=== PATIENT | male | born 1960 | race Asian ===

== ENCOUNTER 2017-04-06 14:07 | Outpatient (CLI) | payer OTHER ==
--- NOTE | 2017-04-06 17:08 | MRI Report ---
EXAM: MRI LUMBAR SPINE WITHOUT CONTRAST EXAM DATE: 04/06/2017 02:52 PM. CLINICAL HISTORY: Chronic low back pain. Left lower extremity radiculopathy. COMPARISON: None. TECHNIQUE: Multiplanar, multisequence T1-weighted and fluid-sensitive sequences of the lumbar spine f rom T12 to S1 without contrast. Other: None. FINDINGS: Spinal Cord: The conus terminates at mid-L1. The conus medullaris and cauda equina are unremarkable. Alignment: No scoliosis or spondylolisthesis. Bone Marrow: Five rct-oas-dcjxhmp lumbar vertebral bodies are assumed. There are Schmorl's nodes at t he T11, T12, L1, L2, L3 inferior endplates and at the L2 superior endplate. No gross fractures or bon e lesions. Disk Levels/Facets: L5-S1: Tiny posterior central to right paracentral disk protrusion. Severe left and yoab-kn-lwqkfxbu right facet arthropathy. Small left facet joint effusion. No stenoses. L4-L5: Small disk bulge, which is asymmetric towards the right. Moderate ligamentum flavum thickening . Emzj-oy-kgjbknuf facet arthropathy. Mild canal, right subarticular zone, and right foraminal stenos es. L3-L4: Minimal disk bulge. Moderate ligamentum flavum thickening. Minimal canal and right foraminal n arrowing. L2-L3: Minimal posterior disk bulge. Small anterior osteophytes. Minimal canal and foraminal narrowin g. L1-L2: Unremarkable. T12-L1: Unremarkable. Musculature: Normal. No edema or fatty atrophy. Other: There is a 1.3 x 1.2 cm left renal cyst. IMPRESSION: 1. Multilevel degenerative disk changes, facet arthropathy, and ligamentum flavum thickening. 2. Small asymmetric disk bulge towards the right at L4-L5. Mild canal, right subarticular zone, and r ight foraminal stenoses. Comment: The following findings are so common in adults without low back pain that while we report th eir presence, they must be interpreted with caution and in the context of the clinical situation. (Re madison Cancino et al, Spine 2001) Prevalence of findings in patients without low back pain: Disk degeneration (any evidence): 92% Disk desiccation/T2 signal loss: 83% Disk height loss: 56% Disk bulge: 64% Disk protrusion: 32% Annular tear/high intensity zone: 38% [facility] Referring Provider Line: [phone] SITE ID: [id number]
== END 2017-04-06 14:08 | disposition home or self-care (01) ==
LOC: DI 14:07
DX: M51.27 Other intervertebral disc displacement, lumbosacral region (principal); M51.36 Other intervertebral disc degeneration, lumbar region; M47.896 Other spondylosis, lumbar region
CPT/HCPCS: 72148

== ENCOUNTER 2018-05-07 11:24 | Outpatient (CLI) | payer OTHER | END 2018-05-07 11:25 | disposition home or self-care (01) | LOC: SC 11:24 | PROVIDERS: ATTEND Internal Medicine Pulmonary Disease | DX: G47.33 Obstructive sleep apnea (adult) (pediatric) (principal) | CPT/HCPCS: 99203; 99212 ==

== ENCOUNTER 2018-07-17 16:09 | Outpatient (CLI) | payer OTHER | END 2018-07-17 16:10 | disposition home or self-care (01) | LOC: SC 16:09 | PROVIDERS: ATTEND Nurse Practitioner Family | DX: G47.33 Obstructive sleep apnea (adult) (pediatric) (principal); G47.00 Insomnia, unspecified | CPT/HCPCS: 99212; 99214 ==

== ENCOUNTER 2018-08-26 09:23 | Emergency (ER) | payer OTHER ==
[2018-08-26 09:29] VITALS: BP 125/80
[2018-08-26] MEDS ORDERED: PROPARACAINE 0.5% OPHTH DROPS 15 ML LEFTEYE STA (09:58)
[2018-08-26] MEDS ORDERED: CYCLOBENZAPRINE 10 MG TABLET PO STA (09:58)
--- NOTE | 2018-08-26 10:19 | ED Physician Documentation ---
History of Present Illness - Stated complaint Stated Complaint: BACK PX/EYE PX - Chief complaint Chief Complaint: Heent - History obtained from History obtained from: Patient - History of Present Illness Timing: Yesterday Pain level max: 8 Pain level now: 8 - Additonal information Additional information: 58-year-old male presents to the emergency department with 2 issues, the first is left eye discomfort. Feels like there is a foreign object in his eye since last night. Thinks it may have been debris from gardening and working in the yard. He does not wear contacts. Better by closing his eyes, worse with opening his eyes. He also complains of left-sided sciatica pain. This is a chronic ongoing issue for him. Normally resolves with Flexeril and Valium. No loss of bowel or bladder control. No recent injury. No fevers. Worse with movement, better with rest Review of Systems Constitutional: denies: Fever, Chills Eyes: denies: Decreased vision Nose: denies: Rhinorrhea / runny nose, Congestion Cardiac: denies: Chest pain / pressure Respiratory: denies: Cough GI: denies: Abdominal Pain, Nausea, Vomiting, Diarrhea : reports: Incontinent. denies: Unable to Void Skin: denies: Rash Musculoskeletal: denies: Neck pain PD PAST MEDICAL HISTORY - Past Medical History Past Medical History: Yes Cardiovascular: High cholesterol Musculoskeletal: Chronic back pain - Present Medications Home Medications: Ambulatory Orders Medication Instructions Recorded Confirmed Allopurinol 100 mg PO 08/26/18 Aspirin 08/26/18 Atorvastatin [Lipitor] 0 mg 08/26/18 Cetirizine [ZyrTEC] 10 mg PO ONCE 08/26/18 08/26/18 Cyclobenzaprine [Flexeril] 10 mg PO TID PRN #20 tablet 08/26/18 Polymyxin B/Trimeth Ophth Drop 1 drops LEFTEYE Q3H 7 Days #1 08/26/18 [Polytrim Ophth Drops] bottle diazePAM [Valium] 5 - 10 mg PO TID PRN #15 tablet 08/26/18 metFORMIN [Glucophage] 500 mg PO ONCE 08/26/18 08/26/18 - Allergies Allergies/Adverse Reactions: Allergies Allergy/AdvReac Type Severity Reaction Status Date / Time No Known Drug Allergies Allergy Verified 08/26/18 09:29 PD ED PE NORMAL - Vitals Vital signs reviewed: Yes - General General: Alert and oriented X 3, No acute distress - HEENT HEENT: Moist mucous membranes, Other (Left eye - Mild conjunctival injection. Positive fluoroscein uptake on the superomedial aspect of the cornea.) - Neck Neck: Supple, no meningeal sign - Cardiac Cardiac: RRR - Respiratory Respiratory: No respiratory distress, Clear bilaterally - Back Back: No spinal TTP (No midline tenderness to palpation or percussion. No step- off or deformity) - Derm Derm: Warm and dry - Extremities Extremities: Other (Normal bilateral lower extremity patellar and ankle jerk reflexes. Normal great toe extension bilaterally. no saddle anesthesia) - Neuro Neuro: Alert and oriented X 3 Results - Vitals Vitals: Vital Signs - 24 hr 08/26/18 09:27 Temperature 36.9 C Heart Rate 67 Respiratory 18 Rate Blood Pressure 125/80 O2 Saturation 99 Oxygen O2 Source Room air PD MEDICAL DECISION MAKING - ED course Complexity details: considered differential (No cauda equina, no spinal epidural abscess, no fracture, no aortic dissection or evidence of aneursym rupture), d/w patient, d/w family ED course: Patient with 2 issues, the first is a corneal abrasion, will place on Polytrim ophthalmic for this. Does not wear contact lenses. The second is sciatica. Will place on Flexeril and Valium for this. Ambulating without difficulty. Patient counseled regarding signs and symptoms for which I believe and urgent re-evaluation would be necessary. Patient with good understanding of and agreement to plan and is comfortable going home at this time This document was made in part using voice recognition software. While efforts are made to proofread this document, sound alike and grammatical errors may occur. Departure - Departure Disposition: 01 Home, Self Care Clinical Impression: Corneal abrasion, left Qualifiers: Encounter type: initial encounter Qualified Code(s): S05.02XA - Injury of conjunctiva and corneal abrasion without foreign body, left eye, initial encounter Sciatica Qualifiers: Laterality: left Qualified Code(s): M54.32 - Sciatica, left side Condition: Good Instructions: ED Eye Injury Corneal Abrasion Follow-Up: KENDALL ADKINS DO [Primary Care Provider] - Within 1 week Prescriptions: Cyclobenzaprine [Flexeril] 10 mg PO TID PRN #20 tablet PRN Reason: Spasms diazePAM [Valium] 5 - 10 mg PO TID PRN #15 tablet PRN Reason: Spasms Polymyxin B/Trimeth Ophth Drop [Polytrim Ophth Drops] 1 drops LEFTEYE Q3H 7 Days #1 bottle Comments: Follow-up with your doctor for further evaluation and care. Return if you worsen. Do not drive or operate heavy machinery while taking the Flexeril or Valium. Forms: Activity restrictions Discharge Date/Time: 08/26/18 10:41
== END 2018-08-26 10:41 | disposition home or self-care (01) ==
LOC: ED 09:23
DX: S05.02XA Injury of conjunctiva and corneal abrasion without foreign body, left eye, initial encounter (principal); X58.XXXA Exposure to other specified factors, initial encounter; Y93.H2 Activity, gardening and landscaping; M54.32 Sciatica, left side; Z79.82 Long term (current) use of aspirin
CPT/HCPCS: 99283; A9270; J3490

== ENCOUNTER 2019-05-06 14:20 | Outpatient (CLI) | payer OTHER ==
--- NOTE | 2019-05-07 19:56 | SLEEP CARE CONSULTATION ---
Information from patient questionnaire entered by Raquel Nielson. I have reviewed and concur with the information entered by Raquel Nielson. This document represents the service I personally performed and the decisions made by me, Dandre Guerra MD, [facility]. History of Present Illness Previous diagnosis: Severe, Obstructive Sleep Apnea-Hypopnea Syndrome AHI: 54.3 Reason for follow up: annual Equipment type: CPAP Equipment obtained from: [employer] Mask brand: Resmed Prior sleep studies: Yes HPI additional information: HPI: Mr. Tipton returned today for follow up of nasal CPAP therapy. He was diagnosed to have severe obstructive sleep apnea-hypopnea syndrome. The patient wears a Respironics Wisp nasal mask. He reports using the device nightly and all through the night. The compliance report shows usage in 180 nights out of the past 180 nights, averaging 8.4 hours a night. The > 4 hour compliance rate for the past 30 days is 100%. He complained of no particular problem with the device such as soreness on the face, dry nose, epistaxis, nasal congestion or headache. He thinks that the pressure of 10 14 cmH2O is comfortable. He also has another machine given to him by the CT. He is not sure what pressure is set on it. On the CPAP therapy he notices improvement in his sleep quality, and that he wakes up feeling fresher in the morning and more awake/alert during the day. His notices no snore at all. The average residual AHI is 2.4; and average air leak is 4 L/minute. The 90th percentile pressure is 12.5 cmH2O. Subjective Initial [place] Sleepiness Scale score: 6 Current [place] Sleepiness Scale score: 1 Allergies and Home Medications Drug allergies reviewed: Yes Home medication list reviewed: Yes Review of Systems Review of systems same as previous: Yes Physical Exam Weight: 185 lb Impression and Plan IMPRESSION: 1. Obstructive Sleep Apnea-Hypopnea Syndrome, severe, with the patient doing well on nasal CPAP therapy. He has excellent compliance and significant clinical improvement. The current pressure appears effective and comfortable. His mask fits well. Overall, he is very satisfied with treatment and plans to continue with it long-term. No adjustment is necessary today. He will bring in the VAs CPAP to have its pressure set the same as this machine. PLAN: 1. Continue with autoCPAP set at 10 - 14 cmH2O. 2. Try to lose weight 3. Try other masks and nasal pillows. 4. Return in one year for follow up or earlier if there is any problem with the treatment. I spent 100% of this visit face to face with the patient with greater than 50% of this was spent time counseling the patient and coordination of care.
== END 2019-05-06 14:21 | disposition home or self-care (01) ==
LOC: SC 14:20
PROVIDERS: ATTEND Internal Medicine Pulmonary Disease
DX: G47.33 Obstructive sleep apnea (adult) (pediatric) (principal)
CPT/HCPCS: 99212; 99213

== ENCOUNTER 2020-08-29 10:22 | Emergency (ER) | payer OTHER ==
--- NOTE | 2020-08-29 11:31 | XRAY Report ---
PROCEDURE: Finger(s) LT INDICATIONS: Drainage and swelling TECHNIQUE: AP hand, 2 views of the left first and fifth finger(s) acquired, for a total of 5 views. COMPARISON: None FINDINGS: There is no fracture. No destructive lytic or blastic osseous lesion identified. No significant arthr itic changes. No radio opaque foreign body or other acute soft tissue finding. IMPRESSION: No acute finding. Reviewed by: Selwyn Chaudhari MD on 08/29/2020 11:29 AM PDT Approved by: Selwyn Chaudhari MD on 08/29/2020 11:29 AM PDT Station ID: [id number]
--- NOTE | 2020-08-29 11:54 | ED Physician Documentation ---
PD HPI SKIN - Stated complaint Stated Complaint: LT HAND SWELLING - Chief complaint Chief Complaint: Wound - History obtained from History obtained from: Patient - Additional information Additional information: 60yM prsents for wound check s/p trigger finger surgery. L first finger has become swollen with increased clear drainage over the past day, with worsening gradual onset throbbing pain, worse with trying to bend the finger. pt has appointment with his surgeon tomorrow. denies fevers. Review of Systems Constitutional: denies: Fever, Chills Skin: reports: Other (wound site drainage) Musculoskeletal: reports: Extremity pain, Joint pain PD PAST MEDICAL HISTORY - Past Medical History Past Medical History: Yes Cardiovascular: High cholesterol Respiratory: None Neuro: None Endocrine/Autoimmune: Type 2 diabetes GI: None : None HEENT: None Psych: None Musculoskeletal: Chronic back pain Derm: None - Past Surgical History Past Surgical History: Yes Ortho: Knee replacement, Carpal Tunnel surgery - Present Medications Home Medications: Ambulatory Orders Medication Instructions Recorded Confirmed Aspirin 81 mg ORAL DAILY 08/26/18 08/29/20 Atorvastatin [Lipitor] 10 mg ORAL HS 08/26/18 08/29/20 Cetirizine [ZyrTEC] 10 mg PO DAILY PRN 08/26/18 08/29/20 allopurinoL [Allopurinol] 100 mg PO DAILY 08/26/18 08/29/20 metFORMIN [Glucophage] 500 mg PO BID 08/26/18 08/29/20 Celecoxib [Celebrex] 200 mg PO DAILY 08/29/20 08/29/20 Cholecalciferol [Vitamin D3] 25 mcg PO DAILY 08/29/20 08/29/20 Mupirocin 2% Oint [Bactroban 2% 1 applic TOP QID 10 Days #50 gm 08/29/20 Oint] cephALEXin [Keflex] 500 mg PO Q6H #28 08/29/20 - Allergies Allergies/Adverse Reactions: Allergies Allergy/AdvReac Type Severity Reaction Status Date / Time No Known Drug Allergies Allergy Verified 08/29/20 10:32 - Social History Does the pt smoke?: No Smoking Status: Former smoker Does the pt drink ETOH?: Yes Does the pt have substance abuse?: No - Immunizations Immunizations are current?: Yes PD ED PE NORMAL - Vitals Vital signs reviewed: Yes - General General: Alert and oriented X 3, No acute distress, Well developed/nourished - HEENT HEENT: Atraumatic, PERRL, EOMI - Derm Derm: Normal color, Warm and dry, Other (L first finger with postsurgical wound at base of first distal phalanx. evidence of wound dehiscence. ckear drainage visible and small amount of surrounding erythema. moderate swelling to thenar eminence compared to R. 2+ radial pulses BL L fifth finger wound site well a ppearing without dehiscence.) - Extremities Extremities: Other (tender with attempt to oppose the thumb and fifth finger. unable to close into complete fist. discomfort along thenar eminence and carpal tunnel. ) - Neuro Neuro: Alert and oriented X 3, No sensory deficit Results - Vitals Vitals: Oxygen O2 Source Room air PD MEDICAL DECISION MAKING - ED course ED course: 60yM p/w increased swelling and mild erythema to L first finger. patient has appointment with his hand surgeon tomorrow. antibiotics prescribed and return precautions given. Departure - Departure Disposition: 01 Home, Self Care Clinical Impression: Wound dehiscence, Cellulitis Condition: Good Instructions: Wound Care Prescriptions: Mupirocin 2% Oint [Bactroban 2% Oint] 1 applic TOP QID 10 Days #50 gm cephALEXin [Keflex] 500 mg PO Q6H #28 Comments: You were seen in the emergency department for swelling and drainage of your left first finger after trigger finger surgery. Your xrays were normal. I see no pus draining, but am going to put you on antibiotics Until you see your surgeon tomorrow. If you have rapidly progressing symptoms then please return to the emergency department immediately. Make sure that you elevate the hand and apply ice to the finger with dressing in place for 20 minutes every hour. Take your antibiotics as prescribed and use the antibiotic ointment. Discharge Date/Time: 08/29/20 12:04
[2020-08-29 12:04] VITALS: BP 138/76
== END 2020-08-29 12:04 | disposition home or self-care (01) ==
LOC: ED 10:22
DX: T81.31XA Disruption of external operation (surgical) wound, not elsewhere classified, initial encounter (principal); T81.49XA Infection following a procedure, other surgical site, initial encounter; E11.9 Type 2 diabetes mellitus without complications
CPT/HCPCS: 99283

== ENCOUNTER 2020-09-27 10:13 | Day surgery (SDC) | payer OTHER ==
--- OUTSIDE RECORDS SUMMARY | 2020-09-27 10:16 | EXTERNAL MEDICAL SUMMARY RPT | Continuity of Care Document ---
:1960 Demographics Phone Unavailable Preferred Language Unknown Marital Status Unknown Buddhist Affiliation Unknown Race Unknown Ethnic Group Unknown Author Organization [facility] Address [address] [id number] Phone Allergies Encounters Medications Problems Results
[2020-09-27] MEDS ORDERED: LACTATED RINGERS 1,000 ML IV ONE (10:20)
--- NOTE | 2020-09-27 11:17 | ANESTHESIA ---
Pre-Anesthesia VS, & Labs - Diagnosis screening - Procedure colonoscopy Vital Signs: Temp Pulse Resp BP Pulse Ox 35.9 C L 72 12 129/86 H 98 09/27/20 10:23 09/27/20 10:23 09/27/20 10:23 09/27/20 10:23 09/27/20 10:23 Height: 5 ft 7 in Weight (kg): 79 kg Body Mass Index: 27.2 BMI Classification: Overweight - NPO >8 hours - Lab Results Lab results reviewed: Yes Home Medications and Allergies Aspirin 81 mg ORAL DAILY 08/26/18 Atorvastatin [Lipitor] 10 mg ORAL HS 08/26/18 Cetirizine [ZyrTEC] 10 mg PO DAILY PRN 08/26/18 allopurinoL [Allopurinol] 100 mg PO DAILY 08/26/18 metFORMIN [Glucophage] 500 mg PO BID 08/26/18 Cholecalciferol [Vitamin D3] 25 mcg PO DAILY 08/29/20 Allergies/Adverse Reactions: Allergies Allergy/AdvReac Type Severity Reaction Status Date / Time No Known Drug Allergies Allergy Verified 08/29/20 10:32 Anes History & Medical History - Anesthetic History Anesthesia Complications: reports: No previous complications Family history of Anesthesia Complications: Denies Family history of Malignant Hyperthermia: Denies - Medical History Cardiovascular: reports: High cholesterol Pulmonary: reports: Sleep apnea, CPAP use Gastrointestinal: reports: None Urinary: reports: None Neuro: reports: None Musculoskeletal: reports: Osteoarthritis, Gout, Chronic back pain, Other Endocrine/Autoimmune: reports: Type 2 diabetes Blood Disorders: reports: None Skin: reports: None Smoking Status: Former smoker Psychosocial: reports: No issues indicated History of Cancer?: No - Surgical History General: reports: Colonoscopy Orthopedic: reports: Carpal Tunnel surgery, Other (B trigger finger release) Exam General: Alert, Oriented x3, Cooperative Dental: Partials Upper Mouth Openin Fingerbreadth Neck Mobility: Normal Mallampati classification: II Thyromental Distance: 4-6 cm Respiratory: Lungs clear, Normal breath sounds, No respiratory distress Cardiovascular: Regular rate Neurological: Normal speech Mental/Cognitive Status: Alert/Oriented X3, Normal for patient Cognitive Status: Within normal limits Plan Anesthesia Type: Total IV Consent for Procedure(s) Verified and Reviewed: Yes Code Status: Attempt Resuscitation ASA classification: 2-Mild systemic disease Is this case an emergency?: No
[2020-09-27] MEDS ORDERED: MIDAZOLAM 2 MG/2 ML VIAL ONE (12:24)
[2020-09-27] MEDS ORDERED: fentaNYL 100 MCG/2 ML VIAL ONE (12:24)
[2020-09-27] MEDS ORDERED: PROPOFOL 200 MG/20 ML VIAL IVP ONE (12:25)
[2020-09-27] MEDS ORDERED: ePHEDrine 50 MG/ML VIAL IVP ONE (12:43)
[2020-09-27] MEDS ORDERED: LACTATED RINGERS 500 ML IV ONE (13:09)
[2020-09-27 13:31] VITALS: BP 110/83
--- NOTE | 2020-09-27 14:56 | ANESTHESIA POST OP EVALUATION ---
Anesthesia Post Eval - Post Anesthesia Eval Vitals: Last Vital Signs Temp 36.2 C L 09/27/20 13:30 Pulse 60 09/27/20 13:30 Resp 16 09/27/20 13:30 BP 110/83 H 09/27/20 13:30 Pulse Ox 98 09/27/20 13:30 CV Function Including HR & BP: Stable Pain Control: Satisfactory Nausea & Vomiting: Negative Mental Status: Baseline Respiratory Status: Airway Patent Hydration Status: Satisfactory Anesthesia Complications: None
== END 2020-09-27 10:14 | disposition home or self-care (01) ==
LOC: SDS 10:13
PROVIDERS: ATTEND Surgery
DX: Z12.11 Encounter for screening for malignant neoplasm of colon (principal); K64.8 Other hemorrhoids; Z80.0 Family history of malignant neoplasm of digestive organs; G47.30 Sleep apnea, unspecified; E66.3 Overweight; Z68.27 Body mass index [BMI] 27.0-27.9, adult; Z87.891 Personal history of nicotine dependence
CPT/HCPCS: 45378; J7120